=== PATIENT | male | born 2000 ===

== ENCOUNTER 2025-05-04 21:55 | Emergency (ER) | payer OTHER ==
[2025-05-04] MEDS ORDERED: Sodium Chloride 0.9% 10 ML Syringe FLUSH PRN (22:19)
[2025-05-04 22:29] LABS: BASOPHILS ABSOLUTE AUTO 0.06 K/uL (0.00-0.20); BASOPHILS PERCENT AUTO 0.4 % (0.0-2.0); EOSINOPHILS ABSOLUTE AUTO 0.12 K/uL (0.00-0.50); EOSINOPHILS PERCENT AUTO 0.9 % (0.0-5.0); IMMATURE GRAN ABSOLUTE AUTO 0.05 10^3/uL (0.00-0.04); IMMATURE GRAN PERCENT AUTO 0.4 % (0.0-0.4); LYMPHOCYTES ABSOLUTE AUTO 1.89 K/uL (0.50-3.50); LYMPHOCYTES PERCENT AUTO 13.6 % (10.0-50.0); MONOCYTES ABSOLUTE AUTO 1.19 K/uL (0.00-1.00); MONOCYTES PERCENT AUTO 8.6 % (2.0-14.0); NEUTROPHILS ABSOLUTE AUTO 10.60 K/uL (1.40-7.00); NEUTROPHILS PERCENT AUTO 76.1 % (45.0-80.0); PLATELET COUNT,PLT 232 K/uL (150-350); RED BLOOD CELL COUNT 4.93 M/uL (4.33-5.41); RED CELL DISTRIBUTION WIDTH 12.0 % (11.2-14.1); WHITE BLOOD CELL COUNT,WBC 13.9 K/uL (4.0-10.2)
[2025-05-04] MEDS ORDERED: Naloxone 0.4 MG/ML SDV IVPUSH PRN (22:47)
[2025-05-04 22:53] LABS: ALANINE AMINOTRANSFERASE,ALT 20.0 U/L (12-78); ASPARTATE AMNIOTRANSFERASE,AST 19.0 U/L (15-37); BILIRUBIN TOTAL 0.3 mg/dL (0.2-1.0); BLOOD UREA NITROGEN,BUN 21.0 mg/dL (7-18); CARBON DIOXIDE,CO2 26.9 mmol/L (21.0-32.0); CHLORIDE,CL 106.0 mmol/L (98-107); CREATININE 1.25 mg/dL (0.51-1.17); EST CRCL DRUG DOSING (CG) 107.05 mL/min; GLUCOSE RANDOM 120.0 mg/dL (70-99); POTASSIUM,K 4.2 mmol/L (3.5-5.1); PROTEIN TOTAL,TP 7.8 g/dL (6.4-8.2); SODIUM,NA 143.0 mmol/L (136-145)
[2025-05-04 22:56] LABS: ESTIMATED GFR 84.0 mL/min (>=60)
[2025-05-04] MEDS: Ondansetron 4 MG/2 ML SDV IVPUSH ONE (23:07)
[2025-05-04] MEDS: Ketorolac 15 MG/ML SDV IVPUSH ONE (23:16)
[2025-05-04] MEDS: Bacitracin/Neomycin/Polymyxin B Oint 0.9 GM U/D Packet TOP ONE (23:49)
[2025-05-04] MEDS: Take Home: Acetaminophen/HYDROcodone 325-10 MG, 5 Tab Pack PO ONE (23:51)
[2025-05-04] MEDS: Take Home: Ketorolac 10 MG Tab, 4 Tab Pack PO ONE (23:51)
[2025-05-05 00:20] VITALS: BP 144/80; PULSE 85
[2025-05-05 01:26] LABS: APPEARANCE,URINE CLEAR; GLUCOSE,URINE NEGATIVE (NEGATIVE); OCCULT BLOOD,URINE NEGATIVE (NEGATIVE)
== END 2025-05-05 00:05 | disposition home or self-care (01) ==
LOC: LL.ED 21:55
DX: S69.92XA Unspecified injury of left wrist, hand and finger(s), initial encounter (principal); S89.92XA Unspecified injury of left lower leg, initial encounter; F17.200 Nicotine dependence, unspecified, uncomplicated; W01.0XXA Fall on same level from slipping, tripping and stumbling without subsequent striking against object, initial encounter
CPT/HCPCS: 36415; 71046; 73130-LT; 73562-LT; 73590-RT; 74019; 80053; 81003; 85025; 96374; 96375; 99284; 99284-25; A9270-GY; J1885; J2270; J2405; J7030